=== PATIENT | female | born 1965 | race African-American/Black ===

== ENCOUNTER 2019-08-01 09:06 | Observation (INO) | payer BC ==
[~2019-08-01] VITALS: Ht 158.8 cm; Wt 89.4 kg
[2019-08-01] MEDS ORDERED: ALBUTEROL SULF 0.083% NEB SOLN 3 ML NEB NEB STA (09:07)
[2019-08-01] MEDS ORDERED: METHYLPREDNISOLONE SOD SUCC 125 MG/2ML VIAL IV ONE (09:15)
--- NOTE | 2019-08-01 09:55 | Diagnostic Imaging Report ---
EXAMINATION: CHEST SINGLE (PORTABLE) INDICATION: Shortness of breath, cough COMPARISON: None FINDINGS: LINES/TUBES:None LUNGS:The lungs are well-inflated. No focal consolidation or pulmonary edema. PLEURA:No pleural effusion or pneumothorax. MEDIASTINUM:The cardiomediastinal silhouette appears normal in size and shape. BONES/SOFT TISSUES:No acute osseous injury. ABDOMEN:No free air under the diaphragm. IMPRESSION: No focal pneumonia or pulmonary edema. Signed by: Terence Kincaid MD on 08/01/2019 9:52 AM
[2019-08-01 10:07] LABS: BASOPHILS % 0.4 % (0.0-1.0); EOSINOPHILS % 0.4 % (0.0-6.0); HEMOGLOBIN 12.9 g/dL (12.0-16.0); LYMPHOCYTES # (AUTO) 1.7 (1.0-3.2); MEAN CORPUSCULAR HEMOGLOBIN 29.3 pg (28-32); MEAN CORPUSCULAR HGB CONC 33.1 g/dL (31-35); MEAN CORPUSCULAR VOLUME 88.6 fL (81-99); MONOCYTES # (AUTO) 0.6 (0.2-0.8); MONOCYTES % 5.8 % (4.4-11.3); NEUTROPHILS # (AUTO) 7.7 (2.1-6.9); NEUTROPHILS % 76.2 % (38.7-80.0); PLATELET COUNT 445 x10e3/uL (140-360)
[2019-08-01 10:14] LABS: BILIRUBIN,URINE NEGATIVE (NEGATIVE); CLARITY,URINE CLEAR (CLEAR); COLOR,URINE YELLOW (YELLOW); KETONES,URINE NEGATIVE (NEGATIVE); LEUKOCYTE ESTERASE ,URINE NEGATIVE (NEGATIVE); NITRITE,URINE NEGATIVE (NEGATIVE); PROTEIN,URINE DIPSTICK NEGATIVE (NEGATIVE); URINE UROBILINOGEN 0.2 mg/dL (0.2 - 1)
[2019-08-01] MEDS ORDERED: ALBUTEROL/IPRATROPIUM 3 ML NEB NEB ONE (10:15)
--- OUTSIDE RECORDS SUMMARY | 2019-08-01 10:16 | XMS REPORT ---
Author Author [facility] Address Unknown Phone Unavailable Care Team Providers Care [employer]er Name Role Phone REMIGIO DOZIER Unavailable Unavailable Problems This patient has no known problems. Allergies, Adverse Reactions, Alerts This patient has no known allergies or adverse reactions. Medications This patient has no known medications. Results Test Description Test Time Test Comments Text Results Atomic Results Result Comments CHEST SINGLE (PORTABLE) 2019-08-01 09:51:00 [facility] [address] [place] [address] Patient Name: JOYCE LANTIGUA MR #: [id number] : 1965 Age/Sex: 54/F Req #: [id number] Adm Physician: Ordered by: REMIGIO DOZIER DO Report #: [id number] Location: ER Room/Bed: Procedure: [id number] DX/CHEST SINGLE (PORTABLE) Exam Date: 08/01/19 Exam Time: 0935 REPORT STATUS: Signed EXAMINATION: CHEST SINGLE (PORTABLE) I NDICATION: Shortness of breath, cough COMPARISON: None FINDINGS: LINES/TUBES:None LUNGS:The lungs are well-inflated. No focal consolidation or pulmonary edema. PLEURA:No pleural effusion or pneumothorax. MEDIASTINUM:The cardiomediastinal silhouette appears normal in size and shape. BONES/SOFT TISSUES:No acute osseous injury. ABDOMEN:No free air under the diaphragm. IMPRESSION: No focal pneumonia or pulmonary edema. Signed by: Raheel Kincaid MD on 08/01/2019 9:52 AM Dictated By: RAHEEL KINACID MD 1 Transcribed By: FOSTER on 08/01/19951 COPY TO: REMIGIO DOZIER DO
[2019-08-01 10:30] LABS: ALANINE AMINOTRANSFERASE 14 IU/L (0-55); ALBUMIN 3.5 g/dL (3.5-5.0); ALBUMIN/GLOBULIN RATIO 1.1 (0.8-2.0); ALKALINE PHOSPHATASE 62 IU/L (40-150); ANION GAP 13.4 mmol/L (8-16); BLOOD UREA NITROGEN 8 mg/dL (7-26); BUN/CREATININE RATIO 12 (6-25); CALCIUM 9.1 mg/dL (8.4-10.2); CARBON DIOXIDE 25 mmol/L (22-29); CHLORIDE 102 mmol/L (98-107); CREATINE KINASE 386 IU/L (29-168); CREATININE, SERUM 0.67 mg/dL (0.57-1.11); EST GLOMERULAR FILTRATION RATE > 60 ML/MIN (60-); GLUCOSE 120 mg/dL (74-118); POTASSIUM 3.4 mmol/L (3.5-5.1); SODIUM 137 mmol/L (136-145)
[2019-08-01 10:49] LABS: BACTERIA,URINE MODERATE /HPF; EPITHELIAL CELLS,URINE FEW /LPF; RBC,URINE 0-5 /HPF (0-5); WBC,URINE (MAN) 0-5 /HPF (0-5)
[2019-08-01 10:50] LABS: INR 0.92; MUCUS,URINE FEW (RARE); PROTHROMBIN TIME 12.8 seconds (11.9-14.5)
[2019-08-01] MEDS ORDERED: PRAVASTATIN SOD20 MG PO (10:55)
[2019-08-01] MEDS ORDERED: LOSARTAN-HCTZ1 EAC2 PO (10:55)
[2019-08-01] MEDS ORDERED: METFORMIN HCL500 M1 PO (10:55)
[2019-08-01] MEDS ORDERED: TRULICITY1.5 MG/0.5 SQ (10:55)
[2019-08-01] MEDS ORDERED: DEXTROSE 50% SYRINGE 50 ML IV PRN (11:45)
[2019-08-01 12:03] VITALS: BP 135/89
[2019-08-01 12:13] VITALS: BP 135/89
[2019-08-01 12:22] VITALS: BP 135/89
[2019-08-01] MEDS ORDERED: NICOTINE 7 MG PATCH TOP SCH (12:31)
--- NOTE | 2019-08-01 13:12 | NUR ---
PATIENT ARRIVED ON THE UNIT AT 1200 PER STRETCHER FROM THE ER. PATIENT IS IN STABLE CONDITION WITH NO S/S OF RESPIRATORY DISTRESS- WHEEZING NOTED. NO PAIN VOICED. TELEMETRY APPLIED. FAMILY MEMBERS PRESENT IN ROOM. CALL LIGHT IS WITHIN REACH, PATIENT IS INSTRUCTED TO CALL FOR ASSISTANCE NEEDED.
[2019-08-01] MEDS: ALBUTEROL/IPRATROPIUM 3 ML NEB NEB SCH ×2 (13:38→19:15)
[2019-08-01] MEDS ORDERED: ALBUTEROL/IPRATROPIUM 3 ML NEB NEB PRN (13:45)
[2019-08-01] MEDS ORDERED: POTASSIUM CHLORIDE 10MEQ EA PO ONE (14:15)
[2019-08-01] MEDS ORDERED: POTASSIUM CHLORIDE 20 MEQ TAB CR PO ONE (14:30)
[2019-08-01 15:21] VITALS: BP 124/77
[2019-08-01] MEDS: INSULIN LISPRO 100 UNIT/1 ML 3ML VIAL SQ SCH ×2 (16:30→20:16)
[2019-08-01 18:16] LABS: CREATINE KINASE MB 8.3 ng/mL (0-5.0)
--- NOTE | 2019-08-01 19:08 | NUR ---
PATIENT IS IN STABLE CONDITION WITH NO S/S OF RESPIRATORY DISTRESS- NO PAIN VOICED. TELEMETRY APPLIED. CALL LIGHT IS WITHIN REACH, PATIENT IS INSTRUCTED TO CALL FOR ASSISTANCE NEEDED. REPORT GIVEN TO ONCOMING NURSE.
--- NOTE | 2019-08-01 19:20 | NUR ---
patient received awake, alert, lying quietly in bed. no c/o pain noted. respirations even and unlabored. pm assessment complete. patient instructed to call for assistance when needed.
[2019-08-01 19:30] VITALS: BP 145/73
[2019-08-01 20:00] VITALS: BP 145/73
--- NOTE | 2019-08-01 20:00 | History and Physical ---
The patient comes in with shortness of breath. HISTORY OF PRESENTING ILLNESS: This is Ms. Cecily Zhu, 54-year-old female with a history of hypertension, was in usual state of health until the patient started with shortness of breath this morning. The patient is a diabetic and also hypertensive. No chest pain was noted with acute shortness of breath. The patient came to the emergency room, was admitted for acute COPD exacerbation. PAST MEDICAL HISTORY: History of diabetes mellitus, history of hypertension, history of hyperlipidemia. MEDICINES: She takes at home are: 1. Trulicity 1.5 mg subcu every weekly. 2. Losartan/hydrochlorothiazide 125 daily. 3. Metformin 1000 mg twice a day. 4. Pravastatin 20 mg at nighttime. SOCIAL HISTORY: Positive for smoking, smokes about a pack a day. No EtOH. No IV drug abuse either. REVIEW OF SYSTEMS: Negative for chest pain. No shortness of breath. No nausea, vomiting, or diarrhea. No constipation. No rectal bleeding. No hematochezia. No hematemesis. FAMILY HISTORY: Positive for dementia in mother and hypertension and diabetes in father. PHYSICAL EXAMINATION: GENERAL: The patient is alert and oriented x3. HEENT: Normocephalic, atraumatic. VITAL SIGNS: Temperature is 98, pulse of 106, respirations of 14, blood pressure is 124/77, pulse oximetry of 96%. HEENT: Normocephalic, atraumatic. Pupils reactive to light and accommodation. CVS: S1 and S2 normal. Regular rate and rhythm. ABDOMEN: Nontender, nondistended. LUNGS: Positive for bilateral respiratory wheezes, decreased air entry into all lung lassiter. EXTREMITIES: No clubbing, no cyanosis, no edema. ABDOMEN: Nontender, nondistended. LABORATORY VALUES: [place] [address], hemoglobin of 12.9, hematocrit of 39. Chemistry shows sodium of 137, potassium of 3.4, BUN was 8, creatinine 0.67. Glucoses have been running in the 197s. CK was slightly elevated at 386, CK-MB of 10.50. Troponin was less than 0.1. The patient's echocardiogram shows LVH with trace TR. ASSESSMENT: This is a 54-year-old female with acute chronic obstructive pulmonary disease exacerbation. PLAN: Plan is to keep her on IV steroids. The patient will be getting 20 mg of IV steroids twice a day. The patient is also on albuterol and Atrovent treatment. The patient has a nicotine patch of mcg, insulin for sliding scale. The patient will restart her medications, further recommendation per clinical course. We will continue to monitor the patient's imaging studies. Chest x-ray did show no focal pneumonia or pulmonary edema. Further recommendation per clinical course. We will continue to monitor the patient. MD MIGUEL Corcoran/MODL /[id number]
[2019-08-01] MEDS: METHYLPREDNISOLONE SOD SUCC 40 MG/ML VIAL 1ML IV SCH (20:16)
[2019-08-02] VITALS (8 sets, daily range): BP systolic 116–138; BP diastolic 56–65
[2019-08-02] MEDS: ALBUTEROL/IPRATROPIUM 3 ML NEB NEB SCH ×4 (00:15→19:20)
[2019-08-02 06:51] LABS: CREATINE KINASE MB 5.3 ng/mL (0-5.0)
--- NOTE | 2019-08-02 07:00 | NUR ---
patient appears to be resting quietly. no c/o pain noted throughout the night. report given to am shift nurse at this time.
--- NOTE | 2019-08-02 07:05 | NUR ---
PATIENT IS ALERT AND IN STABLE CONDITION WITH NO S/S OF RESPIRATORY DISTRESS- PATIENT DENIES PAIN. TELEMETRY APPLIED. CALL LIGHT IS WITHIN REACH- PATIENT IS INSTRUCTED TO CALL FOR ASSISTANCE NEEDED.
[2019-08-02] MEDS: INSULIN LISPRO 100 UNIT/1 ML 3ML VIAL SQ SCH ×4 (07:30→20:49)
[2019-08-02] MEDS ORDERED: DOXYCYCLINE 100MG/NS 100ML 100 ML IV SCH (08:15)
[2019-08-02] MEDS: HYDROCHLOROTHIAZIDE 25 MG TAB PO SCH (08:20)
[2019-08-02] MEDS: LOSARTAN POTASSIUM 100 MG TAB PO SCH (08:20)
[2019-08-02] MEDS: NICOTINE 7 MG PATCH TOP SCH (08:20)
[2019-08-02] MEDS: METHYLPREDNISOLONE SOD SUCC 40 MG/ML VIAL 1ML IV SCH ×2 (08:20→20:48)
[2019-08-02] MEDS: METFORMIN HCL 500 MG TAB CR PO SCH (08:20)
[2019-08-02] MEDS ORDERED: SODIUM CHLORIDE 0.9% 250ML 250 ML ONE (08:43)
[2019-08-02] MEDS ORDERED: NON-FORMULARY MEDICATION (Losartan/Hydrochlorothiazide (Losartan-Hctz 100-12.5 Mg Tab) 1 T PO SCH (09:00)
[2019-08-02] MEDS ORDERED: NICOTINE 7 MG PATCH TOP SCH (09:00)
--- NOTE | 2019-08-02 09:03 | Progress Note ---
DATE: SUBJECTIVE: The patient is in here for COPD exacerbation. She is a chronic smoker, currently still complains of wheezing and shortness of breath. No chest pain noted. OBJECTIVE: VITAL SIGNS: Temperature is 97.6, pulse of 105, respirations of 20, blood pressure is 118/56, pulse oximetry of 96%. HEENT: Normocephalic, atraumatic. Pupils are reactive to light and accommodation. CVS: S1 and S2 are normal. Regular rate and rhythm. LUNGS: Decreased air entry into all lung lassiter. Positive for inspiratory wheezes. LABORATORY VALUES: White count is 10.11, hemoglobin of 12.9, hematocrit of 39. Chemistry shows sodium of 137, potassium is 3.4. Coags are normal. ASSESSMENT: Acute chronic obstructive pulmonary disease exacerbation. PLAN: Plan is to stop the IV antibiotics. We will put her on doxycycline 100 mg twice a day, IV steroids, insulin sliding scale. Continue on her diabetic medications and continue high blood pressure medication. Nicotine patch will be increased to 24 mcg. Further recommendation per clinical course. MD MIGUEL Corcoran/MODL /[id number]
[2019-08-02] MEDS: DOXYCYCLINE HYCLATE TABLET 100 MG TAB PO SCH ×2 (10:16→20:48)
--- NOTE | 2019-08-02 19:10 | NUR ---
PATIENT IS IN STABLE CONDITION WITH NO S/S OF RESPIRATORY DISTRESS. NO PAIN VOICED. TELEMETRY APPLIED. FAMILY MEMBERS PRESENT IN ROOM. CALL LIGHT IS WITHIN REACH, PATIENT IS INSTRUCTED TO CALL FOR ASSISTANCE NEEDED. REPORT GIVEN TO ONCOMING NURSE.
[2019-08-03] VITALS: BP 121/65
[2019-08-03] MEDS: ALBUTEROL/IPRATROPIUM 3 ML NEB NEB SCH ×2 (00:36→07:10)
[2019-08-03 04:00] VITALS: BP 111/58
[2019-08-03 05:37] LABS: BASOPHILS % 0.1 % (0.0-1.0); HEMATOCRIT 35.1 % (34.2-44.1); HEMOGLOBIN 11.4 g/dL (12.0-16.0); LYMPHOCYTES # (AUTO) 1.1 (1.0-3.2); LYMPHOCYTES % 7.9 % (18.0-39.1); MEAN CORPUSCULAR HEMOGLOBIN 28.9 pg (28-32); MEAN CORPUSCULAR HGB CONC 32.5 g/dL (31-35); MEAN CORPUSCULAR VOLUME 89.1 fL (81-99); MONOCYTES # (AUTO) 0.4 (0.2-0.8); MONOCYTES % 3.2 % (4.4-11.3); PLATELET COUNT 414 x10e3/uL (140-360); RED BLOOD COUNT 3.94 x10e6/uL (3.6-5.1); RED CELL DISTRIBUTION WIDTH 13.5 % (11.7-14.4)
[2019-08-03 05:57] LABS: BLOOD UREA NITROGEN 15 mg/dL (7-26); BUN/CREATININE RATIO 24 (6-25); CALCIUM 8.8 mg/dL (8.4-10.2); CARBON DIOXIDE 26 mmol/L (22-29); CHLORIDE 105 mmol/L (98-107); CREATININE, SERUM 0.63 mg/dL (0.57-1.11); EST GLOMERULAR FILTRATION RATE > 60 ML/MIN (60-); GLUCOSE 130 mg/dL (74-118); SODIUM 139 mmol/L (136-145)
--- NOTE | 2019-08-03 07:00 | NUR ---
PATIENT IS AWAKE, ALERT AND IN STABLE CONDITION WITH NO S/S OF RESPIRATORY DISTRESS. PATIENT DENIES PAIN. TELEMETRY APPLIED. CALL LIGHT IS WITHIN REACH, PATIENT IS INSTRUCTED TO CALL FOR ASSISTANCE NEEDED.
[2019-08-03 07:31] VITALS: BP 133/70
[2019-08-03 07:44] VITALS: BP 133/70
[2019-08-03] MEDS: METHYLPREDNISOLONE SOD SUCC 40 MG/ML VIAL 1ML IV SCH (08:00)
[2019-08-03] MEDS: METFORMIN HCL 500 MG TAB CR PO SCH (08:00)
[2019-08-03] MEDS: DOXYCYCLINE HYCLATE TABLET 100 MG TAB PO SCH (08:00)
[2019-08-03] MEDS: LOSARTAN POTASSIUM 100 MG TAB PO SCH (08:00)
[2019-08-03] MEDS: HYDROCHLOROTHIAZIDE 25 MG TAB PO SCH (08:00)
[2019-08-03] MEDS: INSULIN LISPRO 100 UNIT/1 ML 3ML VIAL SQ SCH (08:00)
[2019-08-03] MEDS: NICOTINE 7 MG PATCH TOP SCH (09:14)
--- NOTE | 2019-08-03 10:17 | NUR ---
PATIENT DISCHARGE HOME- PATIENT OFF THE UNIT AT 1025 PER WHEELCHAIR ACCOMPANIED BY RN TO THE FRONT LOBBY. PATIENT IN STABLE CONDITION WITH NO S/S OF RESPIRATORY DISTRESS. NO PAIN VOICED. IV REMOVED WITH TIP INTACT AT 0902. DISCHARGE TEACHING, INSTRUCTIONS, AND MEDICATIONS GIVEN TO THE PATIENT. ALL PERSONAL ITEMS TAKEN WITH THE PATIENT AND HER DAUGHTER.
--- NOTE | 2019-08-03 10:23 | Progress Note ---
DATE: SUBJECTIVE: The patient is a 54-year-old lady with a history of smoking, with new onset COPD exacerbation. Currently, the patient is feeling better. Now shortness of breath is better. No chest pain and no audible wheezing at this time. No complaints. OBJECTIVE: VITAL SIGNS: Temperature is 96.6, pulse of 89, respirations of 20 and she is saturating at 99% on room air. HEENT: Normocephalic, atraumatic. Pupils are reactive to light and accommodation. CVS: S1 and S2 normal. Regular rate and rhythm. ABDOMEN: Nontender, nondistended. LUNGS: Positive for scattered inspiratory wheezes. EXTREMITIES: No clubbing, no cyanosis, no edema. LABORATORY VALUES: Today's white count is 13.62 and neutrophil count of 88. Chemistries show sodium 139, potassium 4.0. The rest of the labs are normal. ASSESSMENT: 1. Chronic obstructive pulmonary disease exacerbation. 2. The patient has also leukocytosis, probably secondary to steroids. 3. Smoking. 4. Hypertension. 5. Hyperlipidemia. PLAN: Continue to monitor the patient as an outpatient. Can be discharged home today on albuterol and Atrovent treatments and also nebulizer. The patient also will get a ProAir q.6 hours as needed. Steroids will be given and also doxycycline for the next 5 days. Further recommendation per clinical course. We will see the patient on Sunday before she goes to work. MD MIGUEL Corcoran/MODL /[id number]
== END 2019-08-03 10:25 | disposition home or self-care (01) ==
LOC: ER 09:06 → ERHOLD 09:42 → MED/SURG3 12:02
PROVIDERS: ADMIT Family Medicine; ATTEND Family Medicine
DX: J44.1 Chronic obstructive pulmonary disease with (acute) exacerbation (principal); I10 Essential (primary) hypertension; E11.9 Type 2 diabetes mellitus without complications; F17.210 Nicotine dependence, cigarettes, uncomplicated; E78.5 Hyperlipidemia, unspecified; Z79.84 Long term (current) use of oral hypoglycemic drugs
CPT/HCPCS: 36415 ×3; 71045; 80048; 80053; 81001; 82550 ×2; 82553 ×2; 82948 ×3; 83880; 84484 ×2; 85025 ×2; 85610; 93005; 93306; 94640 ×5; 99284; G0378 ×3; J2920 ×3; J2930; J7050

== ENCOUNTER 2019-09-15 00:50 | Emergency (ER) | payer BC ==
[~2019-09-15] VITALS: Ht 158.8 cm; Wt 89.4 kg
[~2019-09-15 00:50] MED LIST: LOSARTAN-HCTZ1 EAC2 PO; METFORMIN HCL500 M1 PO; PRAVASTATIN SOD20 MG PO; TRULICITY1.5 MG/0.5 SQ
[2019-09-15] MEDS ORDERED: DIPHENHYDRAMINE HCL INJ 50 MG/ML VIAL ONE (01:03)
[2019-09-15] MEDS ORDERED: METHYLPREDNISOLONE SOD SUCC 125 MG/2ML VIAL ONE (01:03)
[2019-09-15] MEDS ORDERED: FAMOTIDINE 20 MG/2 ML VIAL IV ONE (01:04)
[2019-09-15] MEDS ORDERED: FAMOTIDINE 20 MG/2 ML VIAL IV STA (01:13)
[2019-09-15] MEDS ORDERED: DIPHENHYDRAMINE HCL INJ 50 MG/ML VIAL IV ONE (01:15)
[2019-09-15] MEDS ORDERED: METHYLPREDNISOLONE SOD SUCC 125 MG/2ML VIAL IV ONE (01:15)
[2019-09-15 05:16] VITALS: BP 111/68
--- NOTE | 2019-09-15 05:25 | NUR ---
pt awake and alert. no distress noted. resp even and unlabored on ra. denies problems swallowing, denies sob. dc paperwork and rx provided. pt instructed on avoiding consuming shrimp.
== END 2019-09-15 05:39 | disposition home or self-care (01) ==
LOC: ER 00:50
DX: T61.784A Other shellfish poisoning, undetermined, initial encounter (principal)
CPT/HCPCS: 96374; 99283; J1200; J2930

== ENCOUNTER → 2019-11-03 | Outpatient (CLI) | payer BC ==
--- NOTE | 2019-11-03 15:20 | Diagnostic Imaging Report ---
EXAMINATION: HAND TWO VIEWS BILATERAL INDICATION: Osteoporosis COMPARISON: None FINDINGS: No acute fracture or dislocation. No substantial degenerative changes. Alignment appears anatomic. No evidence of erosive arthropathy. The soft tissues appear unremarkable. IMPRESSION: No acute osseous injury of either hand. No substantial degenerative changes. Signed by: Terence Kincaid MD on 11/03/2019 3:17 PM
== END ==
LOC: RAD 14:24
PROVIDERS: ATTEND Family Medicine
DX: M19.042 Primary osteoarthritis, left hand (principal); M19.041 Primary osteoarthritis, right hand; G56.03 Carpal tunnel syndrome, bilateral upper limbs

== ENCOUNTER 2025-04-05 15:49 | Emergency (ER) | payer BC ==
[~2025-04-05] VITALS: Ht 157.5 cm; Wt 86.2 kg
[2025-04-05 16:26] LABS: BASOPHILS % 0.9 % (0.0-1.0); EOSINOPHILS % 2.2 % (0.0-6.0); LYMPHOCYTES % 44.1 % (18.0-39.1); MONOCYTES % 2.8 % (4.4-11.3); NEUTROPHILS % 50.0 % (38.7-80.0); RED CELL DISTRIBUTION WIDTH 17.6 % (11.7-14.4)
[2025-04-05 16:52] LABS: EST GLOMERULAR FILTRATION RATE 77.0 ML/MIN (>=60)
[2025-04-05] MEDS ORDERED: IOPAMIDOL 370 MG/ML 100 ML INFUS..BTL INJ ONE (17:01)
[2025-04-05 17:25] LABS: BASOPHILS % (MANUAL) 4 % (0-1.5)
[2025-04-05 17:26] LABS: EOSINOPHILS % (MANUAL) 6 % (0-7); LYMPHOCYTES % (MANUAL) 39 % (19-48); MONOCYTES % (MANUAL) 3 % (3.4-9.0); NEUTROPHILS % (MANUAL) 38 % (40-74); REACTIVE LYMPHOCYTES 10
[2025-04-05 17:27] LABS: PLATELET ESTIMATE ADEQUATE; PLATELET MORPHOLOGY COMMENT NORMAL
[2025-04-05 18:50] VITALS: PULSE 81; RESP 18; TEMP 98.5
[2025-04-05 18:55] VITALS: BP 158/85; PULSE 81; RESP 18; TEMP 98.5; O2SAT 100
== END 2025-04-05 18:58 | disposition home or self-care (01) ==
LOC: ER 16:01
DX: K62.5 Hemorrhage of anus and rectum (principal); K64.8 Other hemorrhoids; I10 Essential (primary) hypertension; E11.65 Type 2 diabetes mellitus with hyperglycemia; E78.5 Hyperlipidemia, unspecified; J44.9 Chronic obstructive pulmonary disease, unspecified
CPT/HCPCS: 36415; 74177; 80053; 85025; 99284; Q9967